=== PATIENT | female | born 1940 | race Two or more races ===

== ENCOUNTER 2017-12-13 18:11 | Inpatient (IN) | payer OTHER ==
[~2017-12-13] VITALS: Ht 160 cm; Wt 69.4 kg
[2017-12-13] MEDS ORDERED: SYNTHROID50 MCG (18:21)
[2017-12-13] MEDS ORDERED: LIPITOR20 MG (18:22)
[2017-12-13] MEDS ORDERED: FOLIC ACID1 MG (18:22)
[2017-12-13] MEDS ORDERED: PLAVIX75 MG (18:22)
[2017-12-13] MEDS ORDERED: DIOVAN HCT 1601 EACH (18:23)
[2017-12-13] MEDS ORDERED: NEURONTIN800 MG (18:23)
[2017-12-13] MEDS ORDERED: ZANTAC300 MG (18:24)
[2017-12-13] MEDS ORDERED: CARAFATE1 GM (18:25)
[2017-12-13] MEDS ORDERED: XANAX XR0.5 MG (18:25)
[2017-12-13] MEDS ORDERED: DALMANE30 MG (18:26)
[2017-12-13] MEDS ORDERED: BUPROPION XL150 MG (18:26)
[2017-12-17] MEDS ORDERED: CIPRO500 MG PO (07:51)
[2017-12-17] MEDS ORDERED: INTESTINEX680 M1 PO (07:52)
[2017-12-17] MEDS ORDERED: PROTONIX40 MG PO (07:52)
[2017-12-17] MEDS ORDERED: FLAGYL500MG PO (07:52)
[2017-12-17] MEDS ORDERED: DICY20TA PO (07:53)
== END 2017-12-17 13:30 | disposition home or self-care (01) | DRG 392 ==
LOC: ER 18:11 → SURH 12-14 10:53
DX: K57.32 Diverticulitis of large intestine without perforation or abscess without bleeding (principal); I67.82 Cerebral ischemia; C90.00 Multiple myeloma not having achieved remission; I11.9 Hypertensive heart disease without heart failure; E78.4 Other hyperlipidemia; E03.8 Other specified hypothyroidism; G47.09 Other insomnia

== ENCOUNTER 2019-09-14 10:10 | Day surgery (SDC) | payer OTHER ==
[~2019-09-14 10:10] MED LIST: BUPROPION XL150 MG; CARAFATE1 GM; CIPRO500 MG PO; DALMANE30 MG; DICY20TA PO; DIOVAN HCT 1601 EACH; FLAGYL500MG PO; FOLIC ACID1 MG; INTESTINEX680 M1 PO; LIPITOR20 MG; NEURONTIN800 MG; PLAVIX75 MG; PROTONIX40 MG PO; SYNTHROID50 MCG; XANAX XR0.5 MG; ZANTAC300 MG
== END 2019-09-14 13:35 | disposition home or self-care (01) ==
LOC: AMB-ENDOS 10:10
DX: D12.2 Benign neoplasm of ascending colon (principal); K64.8 Other hemorrhoids